=== PATIENT | female | born 1990 | race Caucasian/White ===

== ENCOUNTER 2019-10-13 06:43 | Inpatient (IN) | payer OTHER ==
[~2019-10-13 06:43] MED LIST: fentaNYL 100 MCG/2 ML SDV ONE
[2019-10-13] MEDS ORDERED: Nalbuphine 10 MG/ML Syringe IVPUSH PRN (07:16)
[2019-10-13] MEDS ORDERED: Sodium Chloride 0.9% 10 ML Syringe FLUSH PRN (07:16)
[2019-10-13] MEDS ORDERED: Ondansetron 4 MG/2 ML SDV IVPUSH PRN (07:16)
--- NOTE | 2019-10-13 07:19 | PCM.LDHP ---
L&D History of Present Illness - General Date of Service: 10/13/19 Admit Problem/Dx: Patient Status Order with Admit Dx/Problem 10/13/19 07:16 Patient Status [ADT] Routine Admission Diagnosis/Problem Admission Diagnosis/Problem Normal in third trimester Source of Information: Patient History Limitations: Reports: No Limitations - History of Present Illness Introduction:: Patient is a 29 y/o at 39 4/7 wks who presents for IOL. Doing well. Notes good FM. 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 (Approximate): - Past Surgical History HEENT Surgical History: Reports: Oral Surgery, Tonsillectomy Social & Family History - Tobacco Use Smoking Status *Q: Former Smoker - Alcohol Use Alcohol Use History: No - Recreational Drug Use Recreational Drug Use: No H&P Review of Systems - Review of Systems: Review Of Systems: See Below General: Reports: No Symptoms Pulmonary: Reports: No Symptoms Cardiovascular: Reports: No Symptoms Gastrointestinal: Reports: No Symptoms Genitourinary: Reports: No Symptoms Musculoskeletal: Reports: No Symptoms Psychiatric: Reports: No Symptoms Neurological: Reports: No Symptoms L&D Exam - Exam Exam: See Below - OB Specific Contraction Intensity: Moderate Movement: Active Heart Tones: Present Heart Tones per Min: 130 Heart Rate (FHR) Variability: Moderate (6-25 bmp) Presentation: Vertex - Lane Score Lane Score Cervix Position: Posterior Lane Score Consistency: Soft Lane Score Effacement: 51-70% Lane Score Dilation: 1-[address] Score 's Station: -3 Lane Score Total: 5 - Exam General: Alert, Oriented, Cooperative Lungs: Clear to Auscultation, Normal Respiratory Effort Cardiovascular: Regular Rate, Regular Rhythm GI/Abdominal Exam: Soft, Non-Tender Genitourinary: Normal external exam Extremities: Normal Inspection Skin: Warm, Dry, Intact - Patient Data Result Diagrams: 10/13/19 07:33 - Problem List (1) 39 weeks gestation of SNOMED Code(s): 69765970 ICD Code: Z3A.39 - 39 WEEKS GESTATION OF Status: Acute Current Visit: Yes Problem List Initiated/Reviewed/Updated: Yes Orders Last 24hrs: Active Orders 24 hr Category Date Time Status Patient Status [ADT] Routine ADT 10/13/19 07:16 Ordered Activity as Tolerated [RC] PFP Care 10/13/19 07:16 Ordered Communication Order [RC] ASDIRECTED Care 10/13/19 07:16 Ordered Communication Order [RC] ASDIRECTED Care 10/13/19 07:16 Ordered Communication Order [RC] ASDIRECTED Care 10/13/19 07:16 Ordered Heart Tones [RC] ASDIRECTED Care 10/13/19 07:17 Ordered Monitoring [RC] INTERMITTENT Care 10/13/19 07:16 Ordered Non Stress Test [RC] PER UNIT ROUTINE Care 10/13/19 07:16 Ordered Notify Provider [RC] ASDIRECTED Care 10/13/19 07:16 Ordered Notify Provider [RC] PRN Care 10/13/19 07:16 Ordered Peripheral IV Care [RC] . DIRECTED Care 10/13/19 07:17 Ordered Vaginal Exam [RC] ASDIRECTED Care 10/13/19 07:16 Ordered Vital Signs [RC] ASDIRECTED Care 10/13/19 07:16 Ordered Regular Diet [DIET] Diet 10/13/19 Breakfast Ordered CBC W/O DIFF,HEMOGRAM [HEME] Routine Lab 10/13/19 07:16 Ordered RAPID PLASMA REAGIN,RPR [CHEM] Routine Lab 10/13/19 07:16 Ordered TYPE AND SCREEN [BBK] Routine Lab 10/13/19 07:16 Ordered Lactated Ringers [Ringers, Lactated] 1,000 ml Med 10/13/19 07:30 Ordered IV ASDIRECTED Nalbuphine [Nubain] Med 10/13/19 07:16 Ordered 10 mg IVPUSH Q2H PRN Ondansetron [Zofran] Med 10/13/19 07:16 Ordered 4 mg IVPUSH Q4H PRN Oxytocin/Lactated Ringers [Pitocin in LR 10 Units/1,000 Med 10/13/19 07:30 Ordered ML] 10 unit in 1,000 ml IV .CONTINUOUS Oxytocin/Lactated Ringers [Pitocin in LR 10 Units/1,000 Med 10/13/19 07:30 Ordered ML] 10 unit in 1,000 ml IV TITRATE Sodium Chloride 0.9% [Saline Flush] Med 10/13/19 07:16 Ordered 10 ml FLUSH ASDIRECTED PRN Electronic Heart Tones Ext w TOCO [WOMSER] Oth 10/13/19 07:16 Ordered Routine Electronic Heart Tones Internal [WOMSER] Per Unit Ot 10/13/19 07:16 Ordered Routine Peripheral IV Insertion Adult [OM.PC] Routine Oth 10/13/19 07:16 Ordered Resuscitation Status Routine Resus Stat 10/13/19 07:16 Ordered Assessment/Plan Comment:: * Labs * GBS negative, no need for antibiotics * Pitocin and then eventually AROM for IOL * pain management per patient preference * Anticipate
[2019-10-13] MEDS ORDERED: Oxytocin/Lactated Ringers 10 UNIT/1,000 ML BAG IV SCH ×2 (07:30)
[2019-10-13] MEDS: Lactated Ringers 1,000 ML IV SCH ×3 (08:33→14:40)
--- NOTE | 2019-10-13 11:42 | PCM.PNLD ---
Labor Progress Note - VS & Meds Vital Signs: Last Vital Signs Temp 36.7 C 10/13/19 07:55 Pulse 84 10/13/19 07:55 Resp 18 10/13/19 07:55 BP 134/90 10/13/19 07:55 Pulse Ox 100 10/13/19 07:55 Active Medications: Current Medications Lactated Ringer's (Ringers, Lactated) 1,000 mls @ 40 mls/hr IV ASDIRECTED NIC Last Admin: 10/13/19 08:33 Dose: 40 mls/hr Oxytocin/Lactated Ringer's (Pitocin In Lr 10 Units/1,000 Ml) 10 unit in 1,000 mls @ 12 mls/hr IV TITRATE NIC; Protocol Last Titration: 10/13/19 10:30 Dose: 8 munits/min, 48 mls/hr Oxytocin/Lactated Ringer's (Pitocin In Lr 10 Units/1,000 Ml) 10 unit in 1,000 mls @ 500 mls/hr IV .CONTINUOUS NIC Nalbuphine HCl (Nubain) 10 mg IVPUSH Q2H PRN PRN Reason: Pain Ondansetron HCl (Zofran) 4 mg IVPUSH Q4H PRN PRN Reason: Nausea/Vomiting Sodium Chloride (Saline Flush) 10 ml FLUSH ASDIRECTED PRN PRN Reason: Keep Vein Open - Uterine Contractions Uterine Monitoring Mode: External Horse Shoe Contraction Intensity: Moderate Uterine Resting Tone: Soft - Monitoring Monitor Mode: External Ultrasound Heart Rate (FHR) Baseline: 135 Heart Rate (FHR) Variability: Moderate (6-25 bmp) Accelerations: Present, 15x15 Decelerations: Early Strip Review: Category I - Vaginal Exam Dilation (cm): 3 Effacement (Percent): 50 Station: -3 Cervical Position: Midposition - Labor Progress (Free Text) Labor Progress: Doing well. Uncomfortable with pitocin. AROM performed with release of clear fluid. Continue present management
[2019-10-13] MEDS ORDERED: diphenhydrAMINE 50 MG/ML SDV IVPUSH PRN (12:25)
[2019-10-13] MEDS ORDERED: fentaNYL 100 MCG/2 ML SDV EPIDUR PRN (12:25)
[2019-10-13] MEDS ORDERED: ePHEDrine 50 MG/ML SDV IVPUSH PRN (12:25)
[2019-10-13] MEDS ORDERED: fentaNYL/Bupivacaine/NS 2 MCG-0.125% 250 ML EPIDUR PRN (12:25)
--- NOTE | 2019-10-13 13:24 | PCM.PREANE ---
Preanesthetic Assessment - Procedure Proposed Procedure: Continuous Labor Epidural - Anesthesia/Transfusion/Family Hx Anesthesia History: Prior Anesthesia Without Reaction Family History of Anesthesia Reaction: No Transfusion History: No Prior Transfusion(s) Additional History: No history of anesthesia problems or difficulty with intubation per patient - Review of Systems General: No Symptoms Pulmonary: No Symptoms, Other (smoker) Cardiovascular: No Symptoms Gastrointestinal: No Symptoms Neurological: No Symptoms Other: Reports: None - Physical Assessment NPO Status Date: 10/13/19 (full stomach) Vital Signs: Last Vital Signs Temp 36.7 C 10/13/19 07:55 Pulse 84 10/13/19 07:55 Resp 18 10/13/19 07:55 BP 134/90 10/13/19 07:55 Pulse Ox 100 10/13/19 07:55 Height: 5 ft 5 in Weight: 103.419 kg ASA Class: 2 Mental Status: Alert & Oriented x3 Airway Class: Mallampati = 2 Dentition: Reports: Normal Dentition ROM/Head Extension: Full Lungs: Clear to Auscultation, Normal Respiratory Effort Cardiovascular: Regular Rate, Regular Rhythm - Lab Values: Laboratory Last Values WBC 9.06 K/mm3 (3.98-10.04) 10/13/19 07:33 RBC 4.75 M/mm3 (3.98-5.22) 10/13/19 07:33 Hgb 13.2 gm/dl (11.2-15.7) 10/13/19 07:33 Hct 39.7 % (34.1-44.9) 10/13/19 07:33 MCV 83.6 fl (79.4-94.8) 10/13/19 07:33 MCH 27.8 pg (25.6-32.2) 10/13/19 07:33 MCHC 33.2 g/dl (32.2-35.5) 10/13/19 07:33 RDW Std Deviation 45.3 fL (36.4-46.3) 10/13/19 07:33 Plt Count 244 K/mm3 (182-369) 10/13/19 07:33 MPV 9.8 fl (9.4-12.3) 10/13/19 07:33 Blood Type O POSITIVE 10/13/19 07:33 Gel Antibody Screen Negative 10/13/19 07:33 - Allergies Allergies/Adverse Reactions: Allergies Allergy/AdvReac Type Severity Reaction Status Date / Time Penicillins Allergy Rash Verified 10/13/19 07:55 - Acknowledgements Anesthesia Type Planned: Epidural Pt an Appropriate Candidate for the Planned Anesthesia: Yes Alternatives and Risks of Anesthesia Discussed w Pt/Guardian: Yes Pt/Guardian Understands and Agrees with Anesthesia Plan: Yes PreAnesthesia Questionnaire - Past Health History Medical/Surgical History: Denies 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: - Past Surgical History HEENT Surgical History: Reports: Oral Surgery, Tonsillectomy - SUBSTANCE USE Smoking Status *Q: Former Smoker Tobacco Use Within Last Twelve Months: No Second Hand Smoke Exposure: No Recreational Drug Use History: No - HOME MEDS Home Medications: Home Meds Pnv No.95/Ferrous Fum/Folic AC [ Vitamin Tablet] 1 tab DAILY 10/13/19 [ History] - CURRENT (IN HOUSE) MEDS Current Meds: Current Medications Diphenhydramine HCl (Benadryl) 25 mg IVPUSH Q6H PRN PRN Reason: pruritis Stop: 10/13/19 23:30 Ephedrine Sulfate (Ephedrine Sulfate) 5 mg IVPUSH ASDIRECTED PRN PRN Reason: Hypotension Stop: 10/13/19 23:30 Fentanyl (Sublimaze) 100 mcg EPIDUR Q3H PRN PRN Reason: Pain Stop: 10/13/19 23:30 Last Admin: 10/13/19 12:49 Dose: 100 mcg Fentanyl/Bupivacaine HCl (Fentanyl/Bupivacaine/Ns 2 Mcg-0.125% 250 Ml) 250 ml EPIDUR CONTINUOUS PRN PRN Reason: Pain Last Admin: 10/13/19 12:50 Dose: 250 ml Lactated Ringer's (Ringers, Lactated) 1,000 mls @ 40 mls/hr IV ASDIRECTED NIC Last Admin: 10/13/19 12:51 Dose: 40 mls/hr Oxytocin/Lactated Ringer's (Pitocin In Lr 10 Units/1,000 Ml) 10 unit in 1,000 mls @ 12 mls/hr IV TITRATE NIC; Protocol Last Titration: 10/13/19 10:30 Dose: 8 munits/min, 48 mls/hr Oxytocin/Lactated Ringer's (Pitocin In Lr 10 Units/1,000 Ml) 10 unit in 1,000 mls @ 500 mls/hr IV .CONTINUOUS NIC Nalbuphine HCl (Nubain) 10 mg IVPUSH Q2H PRN PRN Reason: Pain Ondansetron HCl (Zofran) 4 mg IVPUSH Q4H PRN PRN Reason: Nausea/Vomiting Sodium Chloride (Saline Flush) 10 ml FLUSH ASDIRECTED PRN PRN Reason: Keep Vein Open
--- NOTE | 2019-10-13 16:34 | PCM.DEL ---
L & D Note - General Info Date of Service: 10/13/19 - Delivery Note Labor: Induced by ARM, Induced by Oxytocin Delivery Outcome: Livebirth Infant Delivery Method: Spontaneous Vaginal Delivery-Single Infant Delivery Mode: Spontaneous Presentation: Right Occiput Anterior (SAPPHIRE) Nuchal Cord: None Anesthesia Type: Epidural Amniotic Fluid Description: Clear Episiotomy Type: None Laceration: 2nd Degree Suture type: Vicryl Suture size: 2-0 Placenta: Intact, Spontaneous Cord: 3 Vessels Estimated Blood Loss: 200 Resuscitation Needed: Yes [place]: Bulb Syringe, Stimulated, Warmed, [place] Used, Warmer Used Delivery Comments (Free Text/Narrative):: Patient found to be complete and began pushing. With maternal pushing effort head delivered from an SAPPHIRE presentation. No nuchal cord present. With downward traction shoulders and body delivered. Infant placed on maternal abdomen. Cord clamped and cut. Cord blood obtained. Placenta allowed time to separate and expelled intact. Inspection of the perineum showed a 2nd degree laceration which was repaired with a 2-0 vicryl in the typical fashion - General Info Date of Service: 10/13/19 - Patient Data Vitals - Most Recent: Last Vital Signs Temp 36.7 C 10/13/19 07:55 Pulse 84 10/13/19 07:55 Resp 18 10/13/19 07:55 BP 134/90 10/13/19 07:55 Pulse Ox 100 10/13/19 07:55 Weight - Most Recent: 103.419 kg I&O - Last 24 Hours: Intake & Output 10/13/19 10/13/19 10/13/19 06:59 14:59 22:59 Intake Total 1999 Balance 1999 - Problem List & Annotations (1) 39 weeks gestation of SNOMED Code(s): 42950234 Code(s): Z3A.39 - 39 WEEKS GESTATION OF Status: Acute Current Visit: Yes (2) Vaginal delivery SNOMED Code(s): 064574100 Code(s): O80 - ENCOUNTER FOR FULL-TERM UNCOMPLICATED DELIVERY Status: Acute Current Visit: Yes - Problem List Review Problem List Initiated/Reviewed/Updated: Yes - My Orders Last 24 Hours: My Active Orders 10/13/19 07:16 Patient Status [ADT] Routine Activity as Tolerated [RC] PFP Communication Order [RC] ASDIRECTED Communication Order [RC] ASDIRECTED Communication Order [RC] ASDIRECTED Monitoring [RC] INTERMITTENT Notify Provider [RC] ASDIRECTED Notify Provider [RC] PRN Vaginal Exam [RC] ASDIRECTED Vital Signs [RC] ASDIRECTED Nalbuphine [Nubain] 10 mg IVPUSH Q2H PRN Ondansetron [Zofran] 4 mg IVPUSH Q4H PRN Sodium Chloride 0.9% [Saline Flush] 10 ml FLUSH ASDIRECTED PRN Electronic Heart Tones Ext w TOCO [WOMSER] Routine Electronic Heart Tones Internal [WOMSER] Per Unit Routine Peripheral IV Insertion Adult [OM.PC] Routine Resuscitation Status Routine 10/13/19 07:17 Heart Tones [RC] ASDIRECTED Peripheral IV Care [RC] . DIRECTED 10/13/19 07:30 Lactated Ringers [Ringers, Lactated] 1,000 ml IV ASDIRECTED Oxytocin/Lactated Ringers [Pitocin in LR 10 Units/1,000 ML] 10 unit in 1,000 ml IV .CONTINUOUS Oxytocin/Lactated Ringers [Pitocin in LR 10 Units/1,000 ML] 10 unit in 1,000 ml IV TITRATE 10/13/19 07:33 RAPID PLASMA REAGIN,RPR [CHEM] Routine 10/13/19 09:35 PATIENT RETYPE [BBK] Routine 10/13/19 Breakfast Regular Diet [DIET] - Assessment Assessment:: 29 y/o PPD#0 from - Plan Plan:: * Routine cares * Breast feeding * Discharge home in 1-2 days
[2019-10-13] MEDS ORDERED: Acetaminophen 325 MG Tab PO PRN (16:52)
[2019-10-13] MEDS ORDERED: Benzocaine/Menthol 20%-0.5% Spray 56 GM Canister TOP PRN (16:52)
[2019-10-13] MEDS ORDERED: Witch Hazel Medicated Pads 40/Jar TOP PRN (16:52)
[2019-10-13] MEDS: Ibuprofen 600 MG Tab PO PRN (17:35)
[2019-10-14] MEDS: Ibuprofen 600 MG Tab PO PRN ×2 (04:57→11:24)
--- NOTE | 2019-10-14 06:57 | PCM.PNPP ---
- General Info Date of Service: 10/14/19 Functional Status: Reports: Pain Controlled, Tolerating Diet, Ambulating, Urinating - Review of Systems General: Reports: No Symptoms Pulmonary: Reports: No Symptoms Cardiovascular: Reports: No Symptoms Gastrointestinal: Reports: No Symptoms Genitourinary: Reports: No Symptoms Musculoskeletal: Reports: No Symptoms Neurological: Reports: No Symptoms - Patient Data Vital Signs - Most Recent: Last Vital Signs Temp 36.7 C 10/14/19 04:37 Pulse 73 10/14/19 04:37 Resp 14 10/14/19 04:37 BP 138/97 H 10/14/19 04:37 Pulse Ox 98 10/14/19 04:37 Weight - Most Recent: 103.419 kg I&O - Last 24 Hours: Intake & Output 10/13/19 10/13/19 10/14/19 14:59 22:59 06:59 Intake Total 1999 2320 Balance 1999 2320 Lab Results - Last 24 Hours: Laboratory Results - last 24 hr 10/13/19 10/13/19 10/13/19 Range/Units 07:33 07:33 07:33 WBC 9.06 (3.98-10.04) K/mm3 RBC 4.75 (3.98-5.22) M/mm3 Hgb 13.2 (11.2-15.7) gm/dl Hct 39.7 (34.1-44.9) % MCV 83.6 (79.4-94.8) fl MCH 27.8 (25.6-32.2) pg MCHC 33.2 (32.2-35.5) g/dl RDW Std Deviation 45.3 (36.4-46.3) fL Plt Count 244 (182-369) K/mm3 MPV 9.8 (9.4-12.3) fl RPR Non-reactive (NONREACTIVE) Blood Type O POSITIVE Gel Antibody Screen Negative Med Orders - Current: Current Medications Acetaminophen (Tylenol) 650 mg PO Q4H PRN PRN Reason: mild pain or fever Last Admin: 10/14/19 06:22 Dose: 650 mg Benzocaine/Menthol (Dermoplast Pain Relief [place]) 0 gm TOP ASDIRECTED PRN PRN Reason: Perineal Comfort Measure Last Admin: 10/13/19 17:34 Dose: 1 can Ibuprofen (Motrin) 600 mg PO Q6H PRN PRN Reason: Mild pain or fever Last Admin: 10/14/19 04:57 Dose: 600 mg Witch Isaura (Tucks) 1 pad TOP ASDIRECTED PRN PRN Reason: Perineal Comfort Measure Last Admin: 10/13/19 17:35 Dose: 1 jar Discontinued Medications Diphenhydramine HCl (Benadryl) 25 mg IVPUSH Q6H PRN PRN Reason: pruritis Stop: 10/13/19 23:30 Ephedrine Sulfate (Ephedrine Sulfate) 5 mg IVPUSH ASDIRECTED PRN PRN Reason: Hypotension Stop: 10/13/19 23:30 Fentanyl (Sublimaze) 100 mcg EPIDUR Q3H PRN PRN Reason: Pain Stop: 10/13/19 23:30 Last Admin: 10/13/19 12:49 Dose: 100 mcg Fentanyl/Bupivacaine HCl (Fentanyl/Bupivacaine/Ns 2 Mcg-0.125% 250 Ml) 250 ml EPIDUR CONTINUOUS PRN PRN Reason: Pain Last Admin: 10/13/19 12:50 Dose: 250 ml Lactated Ringer's (Ringers, Lactated) 1,000 mls @ 40 mls/hr IV ASDIRECTED NIC Last Admin: 10/13/19 14:40 Dose: 40 mls/hr Oxytocin/Lactated Ringer's (Pitocin In Lr 10 Units/1,000 Ml) 10 unit in 1,000 mls @ 12 mls/hr IV TITRATE NIC; Protocol Last Titration: 10/13/19 10:30 Dose: 8 munits/min, 48 mls/hr Oxytocin/Lactated Ringer's (Pitocin In Lr 10 Units/1,000 Ml) 10 unit in 1,000 mls @ 500 mls/hr IV .CONTINUOUS NIC Last Admin: 10/13/19 16:18 Dose: 500 mls/hr Nalbuphine HCl (Nubain) 10 mg IVPUSH Q2H PRN PRN Reason: Pain Ondansetron HCl (Zofran) 4 mg IVPUSH Q4H PRN PRN Reason: Nausea/Vomiting Sodium Chloride (Saline Flush) 10 ml FLUSH ASDIRECTED PRN PRN Reason: Keep Vein Open - Infant Interaction Infant Disposition, : [place] in Room with Family Infant Interaction: Holding Feeding: Breastfed ; Nursed Well Support Person: - Recovery Exam Fundal Tone: Firm Fundal Level: 1 Fingerbreadths Below Umbilicus Fundal Placement: Midline Lochia Amount: Small, Moderate, Clots/Tissue Present Lochia Color: Rubra/Red Perineum Description: Other (see below) Other Perinuem Description: 1st degree laceration with repair Episiotomy/Laceration: Approximated Bladder Status: Voiding - Exam General: Alert, Oriented, Cooperative GI/Abdominal Exam: Soft, Non-Tender Extremities: Normal Inspection Skin: Warm, Dry, Intact - Problem List & Annotations (1) 39 weeks gestation of SNOMED Code(s): 23818942 Code(s): Z3A.39 - 39 WEEKS GESTATION OF Status: Acute Current Visit: Yes (2) Vaginal delivery SNOMED Code(s): 530689781 Code(s): O80 - ENCOUNTER FOR FULL-TERM UNCOMPLICATED DELIVERY Status: Acute Current Visit: Yes - Problem List Review Problem List Initiated/Reviewed/Updated: Yes - My Orders Last 24 Hours: My Active Orders 10/13/19 07:16 Activity as Tolerated [RC] PFP Communication Order [RC] ASDIRECTED Communication Order [RC] ASDIRECTED Communication Order [RC] ASDIRECTED Monitoring [RC] INTERMITTENT Notify Provider [RC] ASDIRECTED Notify Provider [RC] PRN Vaginal Exam [RC] ASDIRECTED Vital Signs [RC] ASDIRECTED Resuscitation Status Routine 10/13/19 07:17 Heart Tones [RC] ASDIRECTED 10/13/19 16:52 Activity as Tolerated [RC] PER UNIT ROUTINE Vital Signs [RC] 03,09,15,21 Acetaminophen [Tylenol] 650 mg PO Q4H PRN Benzocaine/Menthol [Dermoplast Pain Relief [place]] See Dose Instructions TOP ASDIRECTED PRN Ibuprofen [Motrin] 600 mg PO Q6H PRN Witch Isaura [Tucks] 1 pad TOP ASDIRECTED PRN Assess Lochia [WOMSER] Per Unit Routine Assess Uterine Involution [WOMSER] Per Unit Routine Breast Pump [WOMSER] Per Unit Routine Heat Therapy [OM.PC] PRN Ice Therapy [OM.PC] Per Unit Routine Perineal Care [OM.PC] Per Unit Routine Peripheral IV Discontinue [OM.PC] Routine Sitz Bath [OM.PC] Per Unit Routine 10/13/19 Dinner Regular Diet [DIET] 10/14/19 16:52 Heat Therapy [OM.PC] PRN - Assessment Assessment:: 29 y/o PPD#1 from - Plan Plan:: * Routine cares * Breast feeding * Discharge home today vs tomorrow depending upon Peds preference
--- NOTE | 2019-10-14 08:03 | PCM48HPAN ---
Post Anesthesia Note - EVALUATION WITHIN 48HRS OF ANESTHETIC Vital Signs in Normal Range: Yes Patient Participated in Evaluation: Yes Respiratory Function Stable: Yes Airway Patent: Yes Cardiovascular Function Stable: Yes Hydration Status Stable: Yes Pain Control Satisfactory: Yes Nausea and Vomiting Control Satisfactory: Yes Mental Status Recovered: Yes Vital Signs: Last Vital Signs Temp 98.1 F 10/14/19 04:37 Pulse 73 10/14/19 04:37 Resp 14 10/14/19 04:37 BP 138/97 H 10/14/19 04:37 Pulse Ox 98 10/14/19 04:37
--- NOTE | 2019-10-14 19:07 | PCM.DCSUM1 ---
Discharge Summary - Discharge Data Discharge Date: 10/14/19 Discharge Disposition: Home, Self-Care 01 Condition: Good - Referral to Home Health Primary Care Physician: Jessi Garza MD - Discharge Diagnosis/Problem(s) (1) 39 weeks gestation of SNOMED Code(s): 99291993 ICD Code: Z3A.39 - 39 WEEKS GESTATION OF Status: Acute (2) Vaginal delivery SNOMED Code(s): 734842553 ICD Code: O80 - ENCOUNTER FOR FULL-TERM UNCOMPLICATED DELIVERY Status: Acute - Patient Summary/Data Complications: None Recommended Follow-up Testing/Procedures: Follow up in 3 weeks for check Hospital Course: 29 at 39 4/7 wks who presented for elective IOL. This was done with pitocin and AROM. She progressed well to complete dilation. She underwent an uncomplicated . See delivery note. did well and was discharged home on PPD#1 - Patient Instructions Diet: Regular Diet as Tolerated Activity: As Tolerated Activity, Other: Pelvic rest for 6 weeks Driving: May Drive Today Showering/Bathing: May Shower Showering/Bathing, Other: May bathe Notify Provider of: Fever, Increased Pain, Nausea and/or Vomiting - Discharge Plan *PRESCRIPTION DRUG MONITORING PROGRAM REVIEWED*: No *COPY OF PRESCRIPTION DRUG MONITORING REPORT IN PATIENT VERENA: No Home Medications: Home Meds Pnv No.95/Ferrous Fum/Folic AC [ Vitamin Tablet] 1 tab DAILY 10/13/19 [ History] Acetaminophen [Tylenol] 650 mg PO Q4H PRN tablet 10/14/19 [Rx] Ibuprofen [Motrin] 600 mg PO Q6H PRN tablet 10/14/19 [Rx] Patient Handouts: and Low Milk Supply, Home Care Instructions for Mom, Breast Pumping Tips, [id number] Referrals: Jessi Garza MD [Primary Care Provider] - (3-6 weeks for check ) - Discharge Summary/Plan Comment DC Time >30 min.: No - Patient Data Vitals - Most Recent: Last Vital Signs Temp 36.7 C 10/14/19 15:49 Pulse 70 10/14/19 15:49 Resp 14 10/14/19 15:49 BP 129/77 10/14/19 15:49 Pulse Ox 98 10/14/19 15:49 Weight - Most Recent: 103.419 kg I&O - Last 24 hours: Intake & Output 10/14/19 10/14/19 10/14/19 06:59 14:59 22:59 Intake Total 240 700 Balance 240 700 Lab Results - Last 24 hrs: Laboratory Results - last 24 hr 10/13/19 Range/Units 07:33 RPR Non-reactive (NONREACTIVE) Med Orders - Current: Current Medications Acetaminophen (Tylenol) 650 mg PO Q4H PRN PRN Reason: mild pain or fever Last Admin: 10/14/19 06:22 Dose: 650 mg Benzocaine/Menthol (Dermoplast Pain Relief [place]) 0 gm TOP ASDIRECTED PRN PRN Reason: Perineal Comfort Measure Last Admin: 10/13/19 17:34 Dose: 1 can Ibuprofen (Motrin) 600 mg PO Q6H PRN PRN Reason: Mild pain or fever Last Admin: 10/14/19 11:24 Dose: 600 mg Witch Isaura (Tucks) 1 pad TOP ASDIRECTED PRN PRN Reason: Perineal Comfort Measure Last Admin: 10/13/19 17:35 Dose: 1 jar Discontinued Medications Diphenhydramine HCl (Benadryl) 25 mg IVPUSH Q6H PRN PRN Reason: pruritis Stop: 10/13/19 23:30 Ephedrine Sulfate (Ephedrine Sulfate) 5 mg IVPUSH ASDIRECTED PRN PRN Reason: Hypotension Stop: 10/13/19 23:30 Fentanyl (Sublimaze) 100 mcg EPIDUR Q3H PRN PRN Reason: Pain Stop: 10/13/19 23:30 Last Admin: 10/13/19 12:49 Dose: 100 mcg Fentanyl (Sublimaze) 100 mcg .ROUTE .STK-MED ONE Stop: 10/13/19 00:01 Fentanyl/Bupivacaine HCl (Fentanyl/Bupivacaine/Ns 2 Mcg-0.125% 250 Ml) 250 ml EPIDUR CONTINUOUS PRN PRN Reason: Pain Last Admin: 10/13/19 12:50 Dose: 250 ml Lactated Ringer's (Ringers, Lactated) 1,000 mls @ 40 mls/hr IV ASDIRECTED NIC Last Admin: 10/13/19 14:40 Dose: 40 mls/hr Oxytocin/Lactated Ringer's (Pitocin In Lr 10 Units/1,000 Ml) 10 unit in 1,000 mls @ 12 mls/hr IV TITRATE NIC; Protocol Last Titration: 10/13/19 10:30 Dose: 8 munits/min, 48 mls/hr Oxytocin/Lactated Ringer's (Pitocin In Lr 10 Units/1,000 Ml) 10 unit in 1,000 mls @ 500 mls/hr IV .CONTINUOUS NIC Last Admin: 10/13/19 16:18 Dose: 500 mls/hr Nalbuphine HCl (Nubain) 10 mg IVPUSH Q2H PRN PRN Reason: Pain Ondansetron HCl (Zofran) 4 mg IVPUSH Q4H PRN PRN Reason: Nausea/Vomiting Sodium Chloride (Saline Flush) 10 ml FLUSH ASDIRECTED PRN PRN Reason: Keep Vein Open
== END 2019-10-14 19:34 | disposition home or self-care (01) | DRG 807 ==
LOC: JD.OB 07:15 → UNDOADMOB 07:15 → JD.OB 16:18 → OBSVTOIN 16:18 → JD.OB 16:19
PROVIDERS: ADMIT Obstetrics & Gynecology; ATTEND Obstetrics & Gynecology
PROC: 10E0XZZ Delivery of Products of Conception, External Approach (ICD-10-PCS; principal; 2019-10-13)
PROC: 0KQM0ZZ Repair Perineum Muscle, Open Approach (ICD-10-PCS; 2019-10-13)
PROC: 10907ZC Drainage of Amniotic Fluid, Therapeutic from Products of Conception, Via Natural or Artificial Opening (ICD-10-PCS; 2019-10-13)
PROC: 3E033VJ Introduction of Other Hormone into Peripheral Vein, Percutaneous Approach (ICD-10-PCS; 2019-10-13)
PROC: 3E0R3BZ Introduction of Anesthetic Agent into Spinal Canal, Percutaneous Approach (ICD-10-PCS; 2019-10-13)
DX: O70.1 Second degree perineal laceration during delivery (principal); Z37.0 Single live birth; Z3A.39 39 weeks gestation of pregnancy
CPT/HCPCS: 01967; 36415; 51702; 59025; 59409; 85027; 86592; 86850; 86900; 86901; A9270-GY; J2590; J3010; J7120

== ENCOUNTER 2022-06-18 11:58 | Inpatient (IN) | payer BC ==
[~2022-06-18 11:58] MED LIST changes: +Bupivacaine 0.25% 10 ML SDV ONE; -fentaNYL 100 MCG/2 ML SDV ONE
[2022-06-18] MEDS ORDERED: Nalbuphine HCl 10 MG/ 1ML Amp IVPUSH PRN (12:18)
[2022-06-18] MEDS ORDERED: Sodium Chloride 0.9% 10 ML Syringe FLUSH PRN (12:18)
[2022-06-18] MEDS ORDERED: Ondansetron 4 MG/2 ML SDV IVPUSH PRN (12:18)
[2022-06-18] MEDS ORDERED: Oxytocin/Lactated Ringers 10 UNIT/1,000 ML BAG IV SCH ×2 (12:30)
[2022-06-18] MEDS: Lactated Ringers 1,000 ML IV SCH ×2 (12:50→18:26)
[2022-06-18 13:18] LABS: ESTIMATED GFR 121 mL/min (>60)
[2022-06-18] MEDS ORDERED: diphenhydrAMINE 50 MG/ML SDV IVPUSH PRN (15:15)
[2022-06-18] MEDS ORDERED: ePHEDrine 50 MG/ML SDV IVPUSH PRN (15:15)
[2022-06-18] MEDS ORDERED: fentaNYL 100 MCG/2 ML SDV EPIDUR PRN (15:15)
[2022-06-18] MEDS: Bupivacaine/fentaNYL/NS 100 ML Bag EPIDUR PRN ×2 (15:30→22:30)
[2022-06-18] MEDS ORDERED: Sodium Chloride 0.9% 10 ML Syringe FLUSH SCH (21:00)
[2022-06-18] MEDS ORDERED: Misoprostol 200 MCG Tab PO STA (23:52)
[2022-06-18] MEDS ORDERED: Oxytocin 10 Units/1 ML SDV IM ONE (23:52)
[2022-06-19] MEDS ORDERED: Acetaminophen 325 MG Tab PO PRN (00:10)
[2022-06-19] MEDS ORDERED: Witch Hazel Medicated Pads 40/Jar TOP PRN (00:10)
[2022-06-19] MEDS ORDERED: Benzocaine/Menthol 20%-0.5% Spray 78 GM Cannister TOP PRN (00:10)
[2022-06-19] MEDS ORDERED: Docusate Sodium 100 MG Cap PO PRN (00:10)
[2022-06-19] MEDS: Ibuprofen 600 MG Tab PO PRN ×3 (07:12→23:11)
[2022-06-19] MEDS ORDERED: Hydrocortisone Acetate 25 MG Supp RECTAL PRN (17:56)
[2022-06-20] MEDS: Ibuprofen 600 MG Tab PO PRN (07:56)
[2022-06-20] MEDS: Hydrocortisone Acetate 25 MG Supp RECTAL SCH ×2 (07:58→15:00)
== END 2022-06-20 12:30 | disposition home or self-care (01) | DRG 560 ==
LOC: JD.OBCHECK 11:58 → JD.OB 12:00 → JD.OBCHECK 12:27 → OBSVTOIN 23:25 → JD.OB 23:26
PROVIDERS: ADMIT Obstetrics & Gynecology; ATTEND Obstetrics & Gynecology
PROC: 10E0XZZ Delivery of Products of Conception, External Approach (ICD-10-PCS; principal; 2022-06-18)
PROC: 3E033VJ Introduction of Other Hormone into Peripheral Vein, Percutaneous Approach (ICD-10-PCS; 2022-06-18)
PROC: 10907ZC Drainage of Amniotic Fluid, Therapeutic from Products of Conception, Via Natural or Artificial Opening (ICD-10-PCS; 2022-06-18)
PROC: 3E0R3BZ Introduction of Anesthetic Agent into Spinal Canal, Percutaneous Approach (ICD-10-PCS; 2022-06-18)
PROC: 0KQM0ZZ Repair Perineum Muscle, Open Approach (ICD-10-PCS; 2022-06-18)
DX: O13.4 Gestational [pregnancy-induced] hypertension without significant proteinuria, complicating childbirth (principal); Z3A.37 37 weeks gestation of pregnancy; Z37.0 Single live birth; Z87.891 Personal history of nicotine dependence; O70.1 Second degree perineal laceration during delivery; O69.1XX0 Labor and delivery complicated by cord around neck, with compression, not applicable or unspecified
CPT/HCPCS: 01967; 36415; 51702; 59025; 59409; 82565; 82570; 84156; 84450; 84460; 85027; 86592; 86850; 86900; 86901; A9270-GY; J2590; J3010; J3490; J7120